=== PATIENT | male | born 1975 | race Caucasian/White ===

== ENCOUNTER 2022-10-31 15:58 | Outpatient (CLI) | payer OTHER, SELFPAY ==
--- NOTE | 2022-10-31 | MR_ITS ---
WS: [id number] EXAMINATION: MR wrist LT wo con* [id number] ORDER DATE: 10/31/2022 4:45 PM COMPARISON: None. HISTORY: INJURY OF LEFT WRIST CONTRAST: None. TECHNIQUE: Axial T1, axial T2 fat sat, coronal T1, coronal proton density fat sat, coronal STIR, alessandra nal 3D, and sagittal T1 performed. After contrast, axial T1 fat sat, coronal T1 fat sat, and sagittal T1 fat sat were performed. FINDINGS: Mild degenerative narrowing at the radiocarpal joint. Mild ulna minus variance with cystic degenerati ve changes involving the distal ulna. Cystic degenerative changes involving the distal carpal row wit h subchondral edema. Normal scaphoid and lunate. Normal scapholunate interval. Normal carpal tunnel. Extensor carpi ulnaris appears intact. Lateral subluxation of the extensor carpi ulnaris lateral to t he ulna styloid. Edema along the extensor retinaculum. Tenosynovitis involving the extensor radialis brevis tendons and extensor carpi radialis longus tendo nsChronic appearing tear of the TFCC at the foveal attachment. 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 MR/MR wrist LT wo con* [id number] IMPRESSION: 1. Ulna minus variance with cystic degenerative changes involving the distal u baggage screener. 2. Partial tear of the TFCC at the foveal attachment. 3. Extensor carpi ulnaris appears intact with lateral subluxation and a small amount of tendinopathy and tenosynovitis. 4. Tenosynovitis involving the extensor carpi radialis brevis and extensor car pi radialis longus tendons. 5. Cystic degenerative changes involving the distal carpal row with edema. 6. Scaphoid and lunate appear intact. 7. Mild degenerative narrowing at the 1st CMC and STT.
== END 2022-10-31 15:59 | disposition home or self-care (01) ==
PROVIDERS: PCP Family Medicine; Visit Provider Family Medicine
DX: S69.92XD Unspecified injury of left wrist, hand and finger(s), subsequent encounter (principal); X58.XXXD Exposure to other specified factors, subsequent encounter; M65.9 Synovitis and tenosynovitis, unspecified
CPT/HCPCS: 73221